=== PATIENT | female | born 1980 | race Caucasian/White ===

== ENCOUNTER → 2021-02-08 | Outpatient (CLI) | payer OTHER ==
--- NOTE | 2021-02-08 19:19 | US ---
EXAMINATION TYPE: US transvaginal DATE OF EXAM: 02/08/2021 COMPARISON: NONE CLINICAL HISTORY: N94.6 Dysmenorrhea. Patient stated had 4 months of no menstrual cycle then had LMP last week of December 2020; A3; C section x 2;Takes thyroid medication. TECHNIQUE: Transvaginal sonographic images were medically necessary to better assess the following a natomy: endometrium. Patient deferred waiting for full bladder for TA US. Date of LMP: last week of December 2020 EXAM MEASUREMENTS: Uterus: 8.4 x 6.0 x 5.5 cm Endometrial Stripe: 1.6cm on TV US; 1.4 cm on TA US Right Ovary: 3.6 x 3.2 x 2.3 cm Left Ovary: 2.7 x 2.7 x 3.9cm 1. Uterus: Anteverted; multiple Nabothian Cysts are seen in cervix with largest = 0.8 x 0.8 x 0.8cm; C section scar seen on TA US. 2. Endometrium: thickened on TV US for approximately day 20LMP 3. Right Ovary: small follicle seen = 0.7 x 0.7 x 0.6cm 4. Left Ovary: wnl 5. Bilateral Adnexa: wnl 6. Posterior cul-de-sac: wnl IMPRESSION: 1. No suspicious acute ultrasound abnormality pelvis
== END ==
LOC: RADUSWWP 16:18
PROVIDERS: ATTEND Internal Medicine
DX: N94.6 Dysmenorrhea, unspecified (principal)
CPT/HCPCS: 76830

== ENCOUNTER → 2023-06-29 | Outpatient (CLI) | payer OTHER ==
--- NOTE | 2023-06-29 14:52 | US ---
EXAMINATION TYPE: US thyroid st tissue head/neck DATE OF EXAM: 06/29/2023 COMPARISON: NONE CLINICAL INDICATION: Female, 42 years old with history of E04.1 LT THYROID NODULE; Lt thyromegaly per primary care on physical exam GLAND SIZE: Right Lobe: 4.7x2.5x2.4 cm Overall Parenchyma: heterogenous Left Lobe: 4.4x1.9x2.3 cm Overall Parenchyma: heterogenous Isthmus Thickness: 0.8 cm NODULES RIGHT: # of nodules measured on right: 0 LEFT: # of nodules measured on left: 0 ISTHMUS: # of nodules measured in the isthmus: 0 Bilateral neck scanned, no evidence of lymphadenopathy. Thyroid appears cystic and heterogenous with nodular borders. No discrete nodules noted IMPRESSION: Heterogenous thyroid gland bilaterally without discrete nodule. Findings suspicious for chronic thyro iditis. Correlate with serum markers.
--- NOTE | 2023-06-30 08:57 | MM ---
Reason for Exam: Screening (asymptomatic). Baseline mammogram. Patient History: Menarche at age 13. First Full-Term at age 19. Last menstrual period: 06/23/2023 Risk Values: Nadiya 5 year model risk: 0.4%. NCI Lifetime model risk: 7.3%. Prior Study Comparison: Patient's first Mammogram. No prior studies available for comparison. Tissue Density: There are scattered fibroglandular densities. Findings: Analyzed By CAD. There is no suspicious group of microcalcifications or new suspicious mass in either breast. Overall Assessment: Negative, BI-RAD 1 Management: Screening Mammogram of both breasts in 1 year. . Patient should continue monthly self-breast exams. A clinical breast exam by your physician is recommended on an annual basis. This exam should not preclude additional follow-up of suspicious palpable abnormalities. Note on Nadiya scores and lifetime risk: 1. A Nadiya score greater than 3% is considered moderate risk. If this is the case, consider specialist referral to assess eligibility for a risk reducing agent. 2. If overall lifetime risk for the development of breast cancer is 20% or higher, the patient may qualify for future screening with alternating mammogram and breast MRI. Electronically signed and approved by: Toro Carpenter M.D. Radiologis
== END | disposition home or self-care (01) ==
LOC: RADUSWWP 12:38
PROVIDERS: ATTEND Family Medicine
DX: Z12.31 Encounter for screening mammogram for malignant neoplasm of breast (principal); E04.1 Nontoxic single thyroid nodule
CPT/HCPCS: 76536; 77063; 77067

== ENCOUNTER 2023-11-18 19:40 | Outpatient (CLI) | payer OTHER ==
--- NOTE | 2023-11-25 01:19 | SLS ---
SLEEP STUDY This is a screening polysomnography. HISTORY OF PRESENT ILLNESS: This is a pleasant 43-year-old female patient, referred to me for hypersomnia and sleepiness with an Chamisal score of 17. She has loud snoring, excessive sleep fragmentation, and the patient was unable to sleep in bed and she has been sleeping on a recliner. She had significant weight gain and a body mass index was 45 and she had a Mallampati class 4. For that reason, a screening polysomnography was done. PAST MEDICAL HISTORY: Includes diabetes and hypothyroidism. PERTINENT PHYSICAL FINDINGS: Height is 5 feet 7 inches, weight is 293, and BMI is 45.9. TECHNICAL DESCRIPTION: The sleep evaluation of the patient consisted of clinical polysomnography, nocturnal respiratory battery, left and right anterior tibialis surface electromyography. The standard montage for the clinical polysomnography included the EEG, EOG, EMG, and EKG. Respiratory battery included measurements of nasal/buccal airflow, thoracic, and/or abdominal effort and intercostal surface EMG. Nocturnal oxyhemoglobin saturations were obtained by finger oximetry. Digital video and audio monitoring were done throughout the entire night to check or parasomnias. SLEEP ARCHITECTURE: Total time in bed was 430.5 minutes. Total sleep time was 342 minutes and the sleep efficiency was 79.4%. Latency to sleep onset is 36 minutes and latency to REM sleep is 65 minutes. The sleep architecture was characterized by 48.8% stage I, 37.4% stage II, 0% stage III, and 13.7% REM sleep. The wake after sleep onset time was 50 minutes. SLEEP CONTINUITY SUMMARY: The patient had a total of 419 arousals with an index of 73.5. Respiratory arousal index was 67.4. Periodic limb movements were none. CARDIAC SUMMARY: Average heart rate was 72, minimum heart rate was 63, and maximum heart rate was 83. RESPIRATORY ANALYSIS: The respiratory analysis showed a total of 574 obstructive events, of which 6 were obstructive apneas, 2 were mixed apneas, and 566 were obstructive hypopneas, and the patient was calculated to have an AHI of 99.8 consistent with severe obstructive sleep apnea. Central apnea index was 0. OXYGENATION ANALYSIS: The patient's baseline pulse ox was 91%. Minimum pulse ox was 59%. This patient spent approximately 3 hours and 36 minutes of the sleep time below pulse ox of 89%. Minimum pulse ox during REM sleep was 59%. IMPRESSION: 1. Severe symptomatic obstructive sleep apnea with an AHI of 99.8. 2. Severe nocturnal oxygen desaturation with a minimum pulse ox of 59%. 3. Excessive sleep fragmentation and abnormal sleep architecture with over- representation of stage 1 sleep and diminished stage II delta and REM. 4. High arousal index secondary to sleep fragmentation and sleep apnea. 5. Obesity with a BMI of 45.9. 6. Chronic hypersomnia, Chamisal score of 17. 7. Diabetes mellitus. 8. Hypothyroidism. PLAN: Immediate CPAP titration for severe symptomatic obstructive sleep apnea. The patient needs to concentrate on losing weight. Optimize sleep hygiene measures. Avoid driving especially when feeling drowsy or sleepy and further recommendations after following her CPAP titration. MMODL / IJN: [id number] /
== END 2023-11-19 05:55 | disposition home or self-care (01) ==
LOC: 3 N SLEEP 19:40
PROVIDERS: ATTEND Internal Medicine Critical Care Medicine
DX: G47.33 Obstructive sleep apnea (adult) (pediatric) (principal); G47.10 Hypersomnia, unspecified; G47.36 Sleep related hypoventilation in conditions classified elsewhere; G47.8 Other sleep disorders; E11.9 Type 2 diabetes mellitus without complications; E03.9 Hypothyroidism, unspecified; F17.200 Nicotine dependence, unspecified, uncomplicated; G47.52 REM sleep behavior disorder; E66.9 Obesity, unspecified; Z68.42 Body mass index [BMI] 45.0-49.9, adult
CPT/HCPCS: 95810

== ENCOUNTER 2023-12-06 19:39 | Outpatient (CLI) | payer OTHER ==
--- NOTE | 2023-12-14 00:17 | SLS ---
SLEEP STUDY This patient was diagnosed of having severe obstructive sleep apnea with an AHI of 99 and the patient is coming in to undergo a CPAP titration. HISTORY OF PRESENT ILLNESS: This is 12/06/2023. TECHNICAL DESCRIPTION: The sleep evaluation of the patient consisted of clinical polysomnography, nocturnal respiratory battery, left and right anterior tibialis surface electromyography. The standard montage for the clinical polysomnography included the EEG, EOG, EMG, and EKG. Respiratory battery included measurements of nasal/buccal airflow, thoracic, and/or abdominal effort and intercostal surface EMG. Nocturnal oxyhemoglobin saturations were obtained by finger oximetry. Digital video and audio monitoring were done throughout the entire night to check or parasomnias. Step-mathew titration with positive airway pressure was utilized during the study to control the respiratory events. report. SLEEP ARCHITECTURE: Total time in bed was 443 minutes. Total sleep time was 389.5 minutes and the sleep efficiency was calculated to be at 87.9%. Latency to sleep onset was 14.5 minutes and the latency to REM sleep was 43.5 minutes. The sleep architecture was characterized by 1.7% stage I, 62.5% stage II, 10% stage III and 25.4% REM sleep. SLEEP CONTINUITY SUMMARY: The patient had a total of 80 arousals with an index of 12.3 and the respiratory arousal index was 6.9. RESPIRATORY ANALYSIS: The patient was started on CPAP therapy, initially at a pressure of 4 cm of water. The pressure was gradually increased by increments of 1 cm to reach a maximum CPAP pressure of 20 cm of water. During the course of the titration, the patient was also tried on BiPAP therapy at pressures of 16/12 and the maximum BiPAP pressure was 25/21 cm of water. I carefully reviewed the CPAP titration taking into account the patient's sleep stage and body position. Note that CPAP therapy was quite effective at a pressure of 20 cm. The patient did encounter some difficulty with tolerability. While on BiPAP therapy, the patient continued to have some occasional obstructive hypopneas yet there were minimal. In general, BiPAP therapy was more effective, especially at the highest BiPAP pressure of 25/21 cm of water. This is considered to be a very high BiPAP pressure and I am going to give the patient a VPAP Auto, giving a range with a maximum BiPAP pressure of 25 cm. OXYGENATION ANALYSIS: Oxygenation saturations improved with BiPAP therapy, especially at therapeutic BiPAP pressures of 25/21 cm of water. PERIODIC LIMB MOVEMENT ACTIVITY: There was significant number of periodic limb movements, a total of 242 with an index of 37.3. Only 6 periodic limb movement with arousals with an index of 0.9. CARDIAC SUMMARY: Average heart rate was 87, minimum heart rate was 80, maximum heart rate was 92. ASSESSMENT: Severe obstructive sleep apnea with an AHI of 99.8. The patient underwent CPAP/BiPAP titration and demonstrated BiPAP therapy was more effective and more tolerable for this patient. There was improvement in nocturnal oxygen desaturations while on BiPAP therapy. Excessive sleep fragmentation, improved while on BiPAP therapy. Obesity, BMI of 45.9. Chronic hypersomnia, [place] score of 17. Diabetes mellitus. Hypothyroidism. PLAN: We will offer the patient an auto BiPAP machine. The patient will be will be given a ResMed VPAP auto with an EPAP minimum of 12 and a maximum pressure of 25 and a pressure support of 4. The patient will be also offered an AirFit F20 medium-sized full-face mask. The patient will be encouraged to lose weight. Optimize sleep hygiene measures and see me back in the office in 30 to 90 days to assess clinical response and compliancy. MMODL / IJN: [id number] /
== END 2023-12-07 05:45 | disposition home or self-care (01) ==
LOC: 3 N SLEEP 19:39
PROVIDERS: ATTEND Internal Medicine Critical Care Medicine
DX: G47.33 Obstructive sleep apnea (adult) (pediatric) (principal); G47.36 Sleep related hypoventilation in conditions classified elsewhere; G47.10 Hypersomnia, unspecified; G47.8 Other sleep disorders; E66.9 Obesity, unspecified; E03.9 Hypothyroidism, unspecified; E11.9 Type 2 diabetes mellitus without complications; G47.61 Periodic limb movement disorder; G47.52 REM sleep behavior disorder; G47.20 Circadian rhythm sleep disorder, unspecified type; F17.200 Nicotine dependence, unspecified, uncomplicated; Z68.42 Body mass index [BMI] 45.0-49.9, adult
CPT/HCPCS: 95811